=== PATIENT | female | born 1980 | race African-American/Black ===

== ENCOUNTER 2017-05-26 15:50 | Emergency (ER) | payer OTHER, SELFPAY ==
[2017-05-26] MEDS ORDERED: Dexamethasone 10 MG/ML VIAL ONE (16:55)
== END 2017-05-26 17:41 | disposition home or self-care (01) ==
LOC: ERS 15:50
DX: J02.0 Streptococcal pharyngitis (principal)
CPT/HCPCS: 99282; J1100